=== PATIENT | female | born 1980 | race African-American/Black ===

== ENCOUNTER 2023-09-02 09:33 | Outpatient (CLI) | payer BC, SELFPAY ==
--- NOTE | ~2023-09-02 | US_ITS ---
EXAMINATION: US pelvic complete w TV DATE: 09/02/2023 11:12 INDICATION: Abdominal pain TECHNIQUE: Multiple transabdominal and endovaginal sonographic images of the pelvis were obtained. COMPARISON: None. FINDINGS: The uterus measures 8.9 x 4.5 x 5.6 cm. The endometrial complex measures 5 mm. There are na bothian cysts of the cervix. The right ovary measures 3.9 x 2.8 x 4.9 cm. The left ovary measures 3.6 x 2.0 x 2.4 cm. There is normal vascular flow in the ovaries. There is no free fluid in the pelvis. IMPRESSION: 1. No sonographic correlate for the patient's symptoms. Reviewed, dictated and finalized at location A.
== END 2023-09-02 09:34 | disposition home or self-care (01) ==
PROVIDERS: PCP Family Medicine
DX: R10.9 Unspecified abdominal pain (principal)
CPT/HCPCS: 76830; 76856